=== PATIENT | male | born 1940 | race Two or more races ===

== ENCOUNTER 2018-09-11 19:23 | Emergency (ER) | payer SELFPAY ==
[~2018-09-11] VITALS: Ht 165.1 cm; Wt 68.0 kg
[2018-09-11] MEDS ORDERED: SODIUM CHLORIDE 0.9% 500 ML IV ONE (20:15)
[2018-09-11] MEDS ORDERED: NIFEdipine 10 MG CAP PO ONE (20:15)
[2018-09-11 20:56] LABS: Alanine Aminotransferase 18 U/L (16-61); Anion Gap 8 (5-15); Aspartate Aminotransferase 14 U/L (15-37); Blood Urea Nitrogen 16 mg/dL (7-18); Calcium 8.8 mg/dL (8.5-10.1); Carbon Dioxide 24 mmol/L (21-32); Chloride 109 mmol/L (98-107); Glucose 100 mg/dL (74-106); Potassium 3.6 mmol/L (3.5-5.1); Sodium 141 mmol/L (136-145)
[2018-09-11 20:57] LABS: Basophils # (auto) 0.1 uL; Basophils % (auto) 1.3 % (0.0-2.0); Eosinophils # (auto) 0.1 uL; Eosinophils % (auto) 1.8 % (0.0-7.0); Hematocrit 41.9 % (41.0-53.0); Hemoglobin 14.2 g/dL (13.5-17.5); Lymphocytes # (auto) 1.2 uL; Lymphocytes % (auto) 14.8 % (10.0-50.0); Mean Corpuscular Hemoglobin 31.6 pg (28.0-32.0); Mean Corpuscular Hgb Conc. 33.9 g/dL (32.0-36.0); Mean Corpuscular Volume 93.2 fL (80.0-100.0); Monocytes # (auto) 0.4 uL; Monocytes % (auto) 5.3 % (0.0-12.0); Neutrophils % (auto) 76.8 % (37.0-80.0); Nucleated Red Blood Cells % 0.1 %; Platelet Count (auto) 203 10^3/uL (140-450); Red Cell Distribution Width 13.6 % (11.8-14.3); White Blood Cell 7.8 10^3/uL (4.4-10.8)
[2018-09-11 21:01] LABS: Alkaline Phosphatase 184 U/L (45-117); BUN/Creatinine Ratio 13.1; Bilirubin, Total 0.5 mg/dL (0.2-1.0); GFR African American 74 mL/min; GFR Non-African American 61 mL/min; Total Protein 7.5 g/dL (6.4-8.2)
[2018-09-11 21:22] LABS: Urine Bacteria FEW /hpf (None Seen); Urine Blood 2+ /uL (Negative); Urine Mucus FEW (None Seen); Urine WBC 39 /hpf (0 - 3); Urine WBC Clumps PRESENT /hpf (None Seen)
[2018-09-11] MEDS ORDERED: cefTRIAXone 1GM/50ML D5W 50 ML IV ONE (22:45)
[2018-09-11 23:04] VITALS: BP 155/80
== END 2018-09-12 00:08 | disposition home or self-care (01) ==
LOC: ER 19:35
DX: I10 Essential (primary) hypertension (principal); N39.0 Urinary tract infection, site not specified; N20.0 Calculus of kidney; Z86.73 Personal history of transient ischemic attack (TIA), and cerebral infarction without residual deficits; Z90.89 Acquired absence of other organs
CPT/HCPCS: 36415; 70450; 71045; 74176; 80053; 81001; 83880; 84484; 85025; 93005; 94761; 96361; 96365; 99284; J0696

== ENCOUNTER 2019-10-18 18:57 | Inpatient (IN) | payer MEDICAID, OTHER ==
[~2019-10-18] VITALS: Ht 170.2 cm; Wt 73.0 kg
[2019-10-18] MEDS ORDERED: SODIUM CHLORIDE 0.9% 1,000 ML IVB ONE (19:11)
[2019-10-18 19:53] LABS: Basophils # (auto) 0 10 ^3/uL (0-0.2); Basophils % (auto) 0.7 % (0.0-2.0); Eosinophils # (auto) 0.1 10 ^3/uL (0-0.8); Eosinophils % (auto) 2.3 % (0.0-7.0); Hematocrit 39.9 % (41.0-53.0); Hemoglobin 13.3 g/dL (13.5-17.5); Lymphocytes # (auto) 1.4 10 ^3/uL (0.4-5.4); Lymphocytes % (auto) 26.4 % (10.0-50.0); Mean Corpuscular Hemoglobin 31.1 pg (28.0-32.0); Mean Corpuscular Hgb Conc. 33.4 g/dL (32.0-36.0); Monocytes # (auto) 0.5 10 ^3/uL (0-1.3); Monocytes % (auto) 8.8 % (0.0-12.0); Neutrophils # (auto) 3.3 10 ^3/uL (1.6-8.6); Neutrophils % (auto) 61.8 % (37.0-80.0); Nucleated Red Blood Cells % 0.1 %; Platelet Count (auto) 207 10^3/uL (140-450); Red Blood Cells 4.29 10^6/uL (4.5-5.90); Red Cell Distribution Width 13.7 % (11.8-14.3); White Blood Cell 5.4 10^3/uL (4.4-10.8)
[2019-10-18 20:18] LABS: Albumin 3.5 g/dL (3.4-5.0); Anion Gap 4 (5-15); Blood Urea Nitrogen 19 mg/dL (7-18); Calcium 8.4 mg/dL (8.5-10.1); Carbon Dioxide 26 mmol/L (21-32); Chloride 107 mmol/L (98-107); Glucose 99 mg/dL (74-106); Magnesium 2.4 mg/dL (1.6-2.6); Potassium 3.8 mmol/L (3.5-5.1); Sodium 137 mmol/L (136-145)
[2019-10-18 20:23] LABS: Alanine Aminotransferase 21 U/L (16-61); Alkaline Phosphatase 161 U/L (45-117); Aspartate Aminotransferase 22 U/L (15-37); BUN/Creatinine Ratio 16.4; Bilirubin, Total 0.4 mg/dL (0.2-1.0); Blood Alcohol < 3.0 mg/dL (0-5); GFR African American 79 mL/min; GFR Non-African American 65 mL/min; Total Protein 6.9 g/dL (6.4-8.2)
[2019-10-18] MEDS ORDERED: cloNIDine HCL 0.1 MG TAB PO ONE (20:45)
[2019-10-18 21:06] LABS: Urine Bacteria NONE SEEN /hpf (None Seen); Urine Blood Negative /uL (Negative); Urine Specific Gravity 1.013 (1.001-1.035); Urine WBC 1 /hpf (0 - 3)
[2019-10-18 21:14] LABS: Alcohol, Urine < 3.0 mg/dL (0-10); Amphetamine Screen, Urine NEGATIVE (NEGATIVE); Barbiturate Scree,Urine NEGATIVE (NEGATIVE); Benzodiazephine Screen, Urine NEGATIVE (NEGATIVE); Cannabinoid Screen, Urine NEGATIVE (NEGATIVE); Cocaine Screen, Urine NEGATIVE (NEGATIVE); Opiate Scree,Urine NEGATIVE (NEGATIVE); Phencyclidine Screen, Urine NEGATIVE (NEGATIVE)
[2019-10-18 22:00] VITALS: BP 168/77
[2019-10-18] MEDS ORDERED: SODIUM CHLORIDE 0.9% 1,000 ML IV SCH (22:39)
[2019-10-18] MEDS ORDERED: ONDANSETRON HCL 4 MG/2 ML VIAL IV PRN (22:45)
[2019-10-18] MEDS ORDERED: ACETAMINOPHEN 325 MG TAB PO PRN (22:45)
[2019-10-18] MEDS ORDERED: DOCUSATE SOD 100 MG CAP PO PRN (22:45)
[2019-10-19] VITALS (7 sets, daily range): BP systolic 124–168; BP diastolic 60–89
--- NOTE | 2019-10-19 | NUR ---
PATIENT ARRIVED TO UNIT Patient arrived to unit via stretcher. Patient transferred to bed safely. Patient is A&O X's 4 with no s/s of distress and reports no pain at this time. Patient is english speaking only. NURSE MONITORING at bedside to help translate. Educated patient on POC and to use call light when in need of assistance. Patient verbalized understanding. Bed is in lowest/locked position with side rails up X's 2 and call light is within reach of patient. Patient is a fall risk and bed alarm is set. Will continue care.
--- NOTE | 2019-10-19 00:30 | NUR ---
MED REC Patient reported no home medications.
[2019-10-19 06:02] LABS: Basophils # (auto) 0 10 ^3/uL (0-0.2); Basophils % (auto) 0.9 % (0.0-2.0); Eosinophils # (auto) 0.2 10 ^3/uL (0-0.8); Eosinophils % (auto) 3.1 % (0.0-7.0); Hematocrit 38.4 % (41.0-53.0); Hemoglobin 12.8 g/dL (13.5-17.5); Lymphocytes # (auto) 1.4 10 ^3/uL (0.4-5.4); Lymphocytes % (auto) 28.1 % (10.0-50.0); Mean Corpuscular Hemoglobin 31.3 pg (28.0-32.0); Mean Corpuscular Hgb Conc. 33.4 g/dL (32.0-36.0); Mean Corpuscular Volume 93.9 fL (80.0-100.0); Monocytes # (auto) 0.4 10 ^3/uL (0-1.3); Monocytes % (auto) 7.8 % (0.0-12.0); Neutrophils % (auto) 60.1 % (37.0-80.0); Nucleated Red Blood Cells % 0.1 %; Platelet Count (auto) 187 10^3/uL (140-450); Red Blood Cells 4.09 10^6/uL (4.5-5.90); Red Cell Distribution Width 13.5 % (11.8-14.3)
[2019-10-19 06:23] LABS: Calcium 7.9 mg/dL (8.5-10.1); Potassium 3.7 mmol/L (3.5-5.1)
[2019-10-19 06:26] LABS: BUN/Creatinine Ratio 13.8
--- NOTE | 2019-10-19 07:30 | NUR ---
Opening Shift Note Assumed care of patient, awake and alert. No S/S of distress/SOB or pain. Bed in loest/locked position, bed rails up x2, call light within reach, bed alarm on. Instructed on POC and to call for assist PRN. Will continue to monitor for changes Q1hr and PRN.
--- NOTE | 2019-10-19 08:35 | NUR ---
[facility] RECEIVED CALL FROM INDER FROM [facility] RE: PATIENT ASSESSMENT FROM INDER.
--- NOTE | 2019-10-19 14:24 | NUR ---
MD ROUNDS DR VERA AT BEDSIDE DISCUSSING POC WITH PATIENT. NEW ORDERS RECEIVED/WILL CARRY OUT. WILL CONTINUE TO MONITOR
[2019-10-19] MEDS ORDERED: amLODIPine BESYLATE 5 MG TAB PO ONE (15:00)
--- NOTE | 2019-10-19 15:32 | NUR ---
LAB URINE SAMPLE SENT TO LAB PER MD ORDERS
[2019-10-19] MEDS: hydrALAZINE HCL 20 MG/ML VL IV PRN (17:15)
--- NOTE | 2019-10-19 19:00 | NUR ---
Opening Shift Note Assumed care of patient, awake and alert. No S/S of distress/SOB or pain. Instructed on POC and to call for assist PRN, will continue to monitor for changes Q1hr and PRN.
[2019-10-19] MEDS: ATORVASTATIN 20 MG TAB PO SCH (21:25)
[2019-10-20 05:21] VITALS: BP 147/68
--- NOTE | 2019-10-20 07:00 | NUR ---
Opening Shift Note Received report on the patient. Awake lying in bed. Patient shows no signs of distress at this time. Discussed the plan of care with the patient. Bed in lowest position, side rails up x2, and the call light is within reach.
[2019-10-20 09:00] VITALS: BP 140/71
--- NOTE | 2019-10-20 10:01 | NUR ---
DR VERA AT BEDSIDE. NEW ORDERS RECEIVED.
[2019-10-20] MEDS: ASPirin-EC 81 mg tab PO SCH (10:14)
[2019-10-20] MEDS: amLODIPine BESYLATE 5 MG TAB PO SCH (10:15)
[2019-10-20 12:47] VITALS: BP 139/71
[2019-10-20 17:08] VITALS: BP 157/83
--- NOTE | 2019-10-20 19:28 | NUR ---
Opening note Assumed care of patient, patient, is alert and orientated x4. Faroese speaking. Reviewed POC with patient, Patient verbalized understanding, patient states he has daughters in [place], and [place] and a son that lives near by but none want to take him in. bed is locked in lowest position side rails up x2. No pain or distress at this time. Call light within reach, will continue to monitor.
[2019-10-20 21:00] VITALS: BP 165/85
[2019-10-20] MEDS: ATORVASTATIN 20 MG TAB PO SCH (21:05)
[2019-10-20] MEDS: hydrALAZINE HCL 20 MG/ML VL IV PRN (23:37)
[2019-10-21 05:00] VITALS: BP 129/50
--- NOTE | 2019-10-21 07:15 | NUR ---
closing note endorsed care to day shift RN
[2019-10-21 09:00] VITALS: BP 148/85
--- NOTE | 2019-10-21 09:28 | NUR ---
Assessment Patient is a 78-year-old male who is alert and oriented. Patient primary language is Latvian. Prior to admission patient was staying in a [facility] on [facility]. Per patient prior to being at the hotel he was staying in the streets for 2 days due to him getting into an argument with his son and leaving the house. Per patient his son is a drug addict and he does not want to return to home and does not want his son to be contact. Per patient he does not have an income or health insurance. Informed patient Guerrero will assist with the [employer] application. Per patient his friend Debra was helping him. Patient advised me to contact Debra. Placed call to Debra regarding patient. Per Debra she met patient at [facility]. Per Debra patient informed her and other individuals at the [facility] he was going to spend the night at the [facility]. Debra and the other individuals at the [facility] informed patient it was not safe for him to stay outside the [facility] so between her and a group of people gathered enough money so that patient can stay at a hotel and contact APS. Per DebraGarcia with APS contact the paramedics who took the patient to the hospital. Per Debra patient had a wheelchair with him and a walker was donated to him from the [facility]. Debra has patient wheelchair and walker and will bring the medical equipment to the hospital. Informed patient he has a right to participate in all discharge planning. Patient verbalized understanding and agreed. Faxed clinical information to [facility] to see if they can assist with placement. Addendum: 10/21/19 at 0929 by DAISHA ALBRECHT Amended: Links added.
[2019-10-21] MEDS: ASPirin-EC 81 mg tab PO SCH (10:56)
[2019-10-21] MEDS: amLODIPine BESYLATE 5 MG TAB PO SCH (10:57)
[2019-10-21 13:00] VITALS: BP 131/69
--- NOTE | 2019-10-21 15:02 | NUR ---
D/C Planning Placed a follow up called to Nanci with PS who advised me they are unable to assist with patient due to patient having an open APS case. Placed call to [facility] [place] and [facility] in [place]. [facility] did not have any bed availability. [facility] is unable to accommodate patient need due to [facility] being a working ranch for working individuals.
--- NOTE | 2019-10-21 17:10 | NUR ---
ASSUMED CARE ASSUMED CARE OF PATIENT AFTER RECEIVING SBAR FROM AMARA PADILLA.
[2019-10-21 17:15] VITALS: BP 127/74
[2019-10-21 21:53] VITALS: BP 159/80
[2019-10-21] MEDS: ATORVASTATIN 20 MG TAB PO SCH (21:54)
[2019-10-22 05:00] VITALS: BP 140/67
--- NOTE | 2019-10-22 07:17 | NUR ---
gave updated report on pt to AMARA Hilliard, day shift.
--- NOTE | 2019-10-22 08:15 | NUR ---
Opening Shift Note Assumed care of patient, awake, alert, and oriented. No S/S of distress/SOB or pain. Bed in lowest/locked position, bed rails up x2, call light within reach. Instructed on POC and to call for assist PRN. Will continue to monitor for changes Q1hr and PRN.
[2019-10-22 09:00] VITALS: BP 150/85
[2019-10-22] MEDS: ASPirin-EC 81 mg tab PO SCH (09:12)
[2019-10-22] MEDS: amLODIPine BESYLATE 5 MG TAB PO SCH (09:13)
--- NOTE | 2019-10-22 11:55 | NUR ---
Nutrition Assessment Note please see attached link for complete assessment Est energy needs BW 72 [id number] kcal (23-25 kcal/kg BW) Est protein needs: 72-79 g (1.0-1.1g/kg BW) will reassess prn Addendum: 10/22/19 at [address] Amended: Links added.
[2019-10-22 13:00] VITALS: BP 155/78
--- NOTE | 2019-10-22 15:48 | NUR ---
D/C Planning Informed patient I contact [facility], [facility] and [facility] and they are currently at full capacity. Provided patient with different options such as returning home with his son, be placed at the [facility], reach out to different family members. Patient refused all placement options stating he prefers to go back to the streets. Patient sign the homeless waiver and will be given homeless resource. Contact Garcia with APS several times and was unable to get a hold of him and his voicemail is unable to receive new messages. Informed AMARA Hilliard.
[2019-10-22 17:00] VITALS: BP 155/93
[2019-10-22] MEDS: hydrALAZINE HCL 20 MG/ML VL IV PRN (17:46)
--- NOTE | 2019-10-22 19:30 | NUR ---
Opening Shift Note Assumed care of patient, awake and alert. No S/S of distress/SOB or pain. Patient has a right sided weakness, independent to stand by assist. Instructed on POC and to call for assist PRN, will continue to monitor for changes Q1hr and PRN.
[2019-10-22] MEDS: ATORVASTATIN 20 MG TAB PO SCH (21:59)
[2019-10-22 22:01] VITALS: BP 157/88
[2019-10-23 05:00] VITALS: BP 121/64
[2019-10-23 08:00] VITALS: BP 155/93
--- NOTE | 2019-10-23 08:00 | NUR ---
ASSESSMENT NOTE PT IS ALERT ORIENTED X4, SITTING AT THE SIDE OF THE BED, LIMITED MOVEMENT NOTED NOTED ON BOTH UPPER AND LOWER EXTREMITIES, PT CONTINUE INDEPENDANT ON HIS NEEDS, ABLE TO FEED HIM SELF, APIN 0/10, CALL LIGHT WITHIN REACH
[2019-10-23] MEDS: ASPirin-EC 81 mg tab PO SCH (08:59)
[2019-10-23] MEDS: amLODIPine BESYLATE 5 MG TAB PO SCH (08:59)
[2019-10-23 09:03] VITALS: BP 130/71
--- NOTE | 2019-10-23 10:00 | NUR ---
PT IS AMBULATING SLOWLY IN THE HALLWAYS, WITH FRONT WHEEL WALKER
[2019-10-23 13:00] VITALS: BP 138/85
--- NOTE | 2019-10-23 16:30 | NUR ---
PT IS AMBULATING IN THE HALLWAYS WITH FRONT WHEEL WALKER, NO DISTRESS NOTED, 8 FEET, THEN BACK TO HIS ROOM, TOLERATED WELL
[2019-10-23 17:04] VITALS: BP 155/86
--- NOTE | 2019-10-23 18:43 | NUR ---
PT CONTINUE STABLE,CONTINUE MONITORING, SITTING UP ON CHAIR AT BED SIDE EATING DINNER
[2019-10-23 21:49] VITALS: BP 142/67
[2019-10-23] MEDS: ATORVASTATIN 20 MG TAB PO SCH (22:14)
[2019-10-24 05:00] VITALS: BP 148/78
--- NOTE | 2019-10-24 07:30 | NUR ---
Opening Shift Note Assumed care of patient, awake and alert. No S/S of distress/SOB or pain. Instructed on POC and to call for assist PRN, will continue to monitor for changes Q1hr and PRN. Bed locked in lowest position with two side rails up and call light in reach.
[2019-10-24 08:00] VITALS: BP 144/72
[2019-10-24 09:00] VITALS: BP 144/72
[2019-10-24] MEDS: amLODIPine BESYLATE 5 MG TAB PO SCH (10:31)
[2019-10-24] MEDS: ASPirin-EC 81 mg tab PO SCH (10:31)
[2019-10-24 13:00] VITALS: BP 156/77
[2019-10-24 17:00] VITALS: BP 147/78
--- NOTE | 2019-10-24 19:25 | NUR ---
Opening Shift Note Received report from Priya MALONEY. Assumed care of patient, awake and alert. Patient ambulating to the hallway using a FWW, tolerated well. No S/S of distress/SOB or pain. Instructed on POC and to call for assist PRN, will continue to monitor for changes Q1hr and PRN.
[2019-10-24] MEDS: ATORVASTATIN 20 MG TAB PO SCH (21:33)
[2019-10-24 21:37] VITALS: BP 147/70
[2019-10-25 05:00] VITALS: BP 128/67
--- NOTE | 2019-10-25 07:30 | NUR ---
Opening Shift Note Assumed care of patient, awake and alert. No S/S of distress/SOB or pain. Bed is low, locked with 2x side rails up. Call light is within reach. Instructed on POC and to call for assist PRN, will continue to monitor for changes Q1hr and PRN.
[2019-10-25 09:00] VITALS: BP 150/83
[2019-10-25] MEDS: ASPirin-EC 81 mg tab PO SCH (10:02)
[2019-10-25] MEDS: amLODIPine BESYLATE 5 MG TAB PO SCH (10:02)
--- NOTE | 2019-10-25 11:36 | NUR ---
Dr. Trinidad at bedside Dr. Shaikh yi. Discussed discharge plans with patient. Patient is open to going to a homeless custodial. Patient stated he does not want to return to his sons home. Will update case management team and initiate discharge planning.
--- NOTE | 2019-10-25 11:50 | NUR ---
Nutrition Followup Notes Wt: 72.6 kg Pt was awake speaks less Kinyarwanda. per pt no N.V with good appetite. pt awaiting placement. pt is currently ion 2 gm na diet with adequate PO of 100% x 4 per RN doc Est energy needs BW 72 [id number] kcal (23-25 kcal/kg BW) Est protein needs: 72-79 g (1.0-1.1g/kg BW) will reassess prn LABS: No new labs today 10/18: CA 7.9 L, TG 214 H GI: Pt had 2 BM today per RN doc BS: 20 low risk Refer to wound assessment report for full details. PES: Altered nutrition related lab values r.t current chronic medical condition aeb hypocalcemia, elev lipids Comments: Will continue to monitor PO status, skin status, pertinent labs and weight trends. Will f/u in 3-5 days. Rec: 1) continue assistance with meals. 2) consider cardiac diet. 3) continue current plan of care
[2019-10-25 13:00] VITALS: BP 159/80
[2019-10-25] MEDS ORDERED: LISINOPRIL 10 MG TAB PO ONE (13:15)
[2019-10-25] MEDS ORDERED: AML5T PO (13:17)
[2019-10-25] MEDS ORDERED: ATOR20TA50 PO (13:17)
[2019-10-25] MEDS ORDERED: ASPI-378 PO (13:17)
[2019-10-25] MEDS ORDERED: LISI-646 PO (13:17)
[2019-10-25 15:42] VITALS: BP 159/80
--- NOTE | 2019-10-25 16:38 | NUR ---
D/C Planning Contact [facility], time for [facility], [facility], and [facility] they are at full capacity and unable to take patient at this time. AMARA Mcintyre advised me this morning Garcia with APS contact her in regards of patient. Informed AMARA Mcintyre I will contact Garcia with APS. Placed call this morning to Garcia. Garcia with APS advised me he will see if he can assist with finding placement for patient and will contact me by 16:00 with updates. Received follow up called from Garcia BILLS advising me he is unable to help patient and there is no resources for patient. Informed AMARA Mcintyre.
[2019-10-25 17:00] VITALS: BP 148/88
--- NOTE | 2019-10-25 17:19 | NUR ---
Holding discharge Per social media director, it is unsafe to discharge patient at this time as patient does not have anywhere to go. Dr. Trinidad is in agreement with holding discharge plans until tomorrow. Will relay information to oncoming nurse.
--- NOTE | 2019-10-25 19:20 | NUR ---
Opening Shift Note Received report from Miguelina MALONEY. Assumed care of patient, awake and alert. No S/S of distress/SOB or pain. Instructed on POC and to call for assist PRN. Fall precaution measures in place, will continue to monitor for changes Q1hr and PRN.
[2019-10-25 22:00] VITALS: BP 125/64
[2019-10-25] MEDS: ATORVASTATIN 20 MG TAB PO SCH (22:27)
[2019-10-26 05:23] VITALS: BP 119/58
[2019-10-26 09:00] VITALS: BP 134/64
[2019-10-26] MEDS: amLODIPine BESYLATE 5 MG TAB PO SCH (10:07)
[2019-10-26] MEDS: ASPirin-EC 81 mg tab PO SCH (10:07)
--- NOTE | 2019-10-26 10:51 | NUR ---
re-assessment I contacted Dionisio Rodas from [facility]PS. Dionisio informed me since ptient has no income and he is undocumented he cannot help patient. Per Dionisio he will not get any reimbursement back. Per Dionisio patient will need to go back on the street. Addendum: 10/28/19 at 1702 by Jessica ALBRECHT Amended: Links added.
[2019-10-26 13:00] VITALS: BP 143/71
[2019-10-26 14:15] VITALS: BP 143/71
[2019-10-26 16:55] VITALS: BP 155/74
--- NOTE | 2019-10-26 17:30 | NUR ---
re-assessment I spoke with Yazan and he and his agree to patient living with them. Per Yazan he is requesting patient come in the morning so he can get patients room ready. I informed Miguelina godinez RN and Dr Trinidad. Addendum: 10/28/19 at 1702 by Jessica ALBRECHT Amended: Links added.
[2019-10-26] MEDS: ATORVASTATIN 20 MG TAB PO SCH (21:59)
[2019-10-26 23:43] VITALS: BP 117/62
--- NOTE | 2019-10-27 03:06 | NUR ---
0214. PATIENT SLEEPING AT THIS TIME.
[2019-10-27 05:31] VITALS: BP 115/72
--- NOTE | 2019-10-27 08:00 | NUR ---
Opening Shift Note Assumed care of patient, awake, alert and oriented X4. No S/S of distress/SOB or pain. IV to left forearm, 22 gauge, patent and saline locked. Instructed on POC and to call for assist PRN, verbalized understanding. Bed locked, in lowest position, call light within reach, will continue to monitor for changes Q1hr and PRN.
--- NOTE | 2019-10-27 08:45 | NUR ---
MANAGER RESORT Jessica, Licensed Physical Therapy Assistant, informed me patient will be going to a "friends" in [place] and will need to be ready for discharge to be picked up by a Taxi at 1000. Patient updated on plan of care, verbalized understanding.
[2019-10-27 09:00] VITALS: BP 155/74
--- NOTE | 2019-10-27 09:00 | NUR ---
re-assessment Patient has been provided with taxi voucher to Yazan annamaria [address] [place] [address] in [place] [address]. Yazan phone number [phone]. Patient verbalized understanding and agreed to discharge plan to Yazan his friends house. Clover Candelaria CNA and Shiv mendoza. Addendum: 10/28/19 at 1702 by Jessica ALBRECHT Amended: Links added.
--- NOTE | 2019-10-27 09:15 | NUR ---
Discharge instructions given as ordered with AMARA Wilkinson, translating in Comoran, patient verbalized understanding. Encourage to follow up with PMD as instructed. All questions and concerns addressed. Patient verbalized understanding. Medication reconciliation form completed and copy given to patient. New prescriptions filled and sitting at bedside, along with patient's own walker. IV removed with catheter intact, pressure dressing applied Call placed to [facility] [employer], informed patient will need to be picked up at 1000, verbalized he will be here at 1000. Patient awaiting Taxi to arrive. Will continue to monitor.
--- NOTE | 2019-10-27 10:05 | NUR ---
Patient taken to lobby with all personal belongings by levar Chaney where he will wait with the patient until the Taxi arrives. No distress noted upon departure.
--- NOTE | 2019-10-28 12:53 | NUR ---
re-assessment Patient provided me with a phone number to his friend Yazan in [place] who he lived with 2 years ago. I called Yazan and informed him patient was in need of a place to stay. Per Yazan he will speak to his who comes home at 5pm and if she agrees patient can come live with them. I will follow up after 5pm. Addendum: 10/28/19 at 1658 by Jessica ALBRECHT amend This note is from 10/26/2019 Addendum: 10/28/19 at 1702 by Jessica ALBRECHT Amended: Links added.
== END 2019-10-27 10:18 | disposition home or self-care (01) | DRG 861 ==
LOC: ER 18:57 → EDBD 18:57 → EDUNIT# 18:57 → OVERFLOW 18:58 → CENTRAL 23:52
PROVIDERS: ADMIT Hospitalist; ATTEND Internal Medicine
DX: R53.1 Weakness (principal); R62.7 Adult failure to thrive; Z79.82 Long term (current) use of aspirin; I69.351 Hemiplegia and hemiparesis following cerebral infarction affecting right dominant side; I10 Essential (primary) hypertension; E78.5 Hyperlipidemia, unspecified; Z20.828 Contact with and (suspected) exposure to other viral communicable diseases; Z90.49 Acquired absence of other specified parts of digestive tract; Z59.0 Homelessness; Z79.899 Other long term (current) drug therapy
CPT/HCPCS: 36415; 70450; 71045; 80048; 80053; 80061; 80307; 80320; 81001; 83735; 84443; 85025; 87086; 93005; 97110; 97116; 97530; G0378